=== PATIENT | male | born 1985 | race Caucasian/White ===

== ENCOUNTER 2019-05-19 08:21 | Outpatient (CLI) | payer OTHER ==
[2019-05-19 09:34] VITALS: BP 112/68
--- NOTE | 2019-05-19 09:34 | SLEEP CARE CONSULTATION ---
Information from patient questionnaire entered by Suha Metzger. I have reviewed and concur with the information entered by Suha Metzger. This document represents the service I personally performed and the decisions made by me, Martha Agarwal, RN, MSN, INSURANCE PROCESSING CLERK. History of Present Illness Reason for Visit: New patient Chief Complaint: reports: Unrefreshed sleep, Excessive daytime sleepiness, Fatigue, Frequent awakenings at night, Other (constant heachache/migraines) Duration of Symptoms: 12 years Usual bedtime: 9-9:30 pm Time it takes to fall asleep: 30-120 mins Snores at night: Yes Observed to quit breathing while asleep: No Sleeps alone due to snoring: No Reasons for waking at night: reports: Bathroom, Other (unknown) Toss, Turn, or Twitch while sleeping: Yes Recalls having dreams: Yes Usually gets out of bed at: 5:15 am Feels refreshed in the morning: No Morning headache: Yes (has headache most of time that is diminished by excedrin. ) Sleepy or fatigued during the day: Yes Ever fallen asleep while driving: Yes (nodding off long distance about a year ago / no rumble bumps / no accident) Takes day naps: No Dreams during day naps: No Prior sleep studies: No - Parasomnia Symptoms Ever been unable to move upon waking from sleep: Yes (last time a month ago. - about 6 times a year for past 15 years) Walks in sleep: No Talks in sleep: No Ever acted out dreams in sleep: Yes (once only during a hockey dream) Ever felt weak in the knees when startled or emotional: No Bothered by creepy, crawly, restless sensations in legs: No Problems with memory or concentration: Yes Subjective Initial [place] Sleepiness Scale score: 15 Past Medical History Past Medical History: reports: Mood disorder (anxiety / depression - sees a counselor monthly. 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 Patient is and lives in [place]. Have you smoked in the past 12 months: No Cigarettes per day (20/pack): 5 Years of smokin Quit date: January 2010 Smoking Pack Years: 0.8 Alcohol use: Yes Alcohol amount and frequency: 1-2 a couple times a month Caffeine use: Yes Caffeine amount and frequency: 1 cup of coffee a day Family History Family history of sleep disordered breathing: Yes Family Hx Sleep Apnea: Grandparent: Snoring Allergies and Home Medications Known drug allergies: Yes (Penicillin) Home medication list reviewed: Yes Allergy and home medication list: Tums 1-2 daily as needed Excedrin 1-2 daily as needed. Review of Systems Gastrointestinal: reports: heartburn Urinary: reports: frequency Neurological: reports: headaches Psychiatric: reports: mood disorder Ear/Nose/Throat: reports: wisdom teeth removed Endocrine: reports: sluggishness, too hot or cold (gets very warm during sleep and has nightsweats most nights), excessive thirst (always feels thirst) Musculoskeletal: reports: joint pain, neck pain, back pain (chronic back , neck and knees - recently evaluated about August) Physical Exam Blood Pressure: 112/68 Cuff size: long Heart Rate: 63 O2 Saturation: 98 Height: 5 ft 7.25 in Weight: 192 lb 3.2 oz Body Mass Index: 29.8 BMI Classification: Overweight HEENT: No craniofacial malformation Nostrils: patent to airflow Turbinates: swollen Septum: midline Mouth and throat: narrow oropharynx Soft palate: long Hard palate: normal Uvula: normal Uvula visualization: 50% Mallampati Class II Tongue: normal in size Tonsils: small Chin and jaw: Micrognathia Neck: normal w/o lymphadenopathy or thyromegaly Heart: regular rate and rhythm Lungs: clear bilaterally Abdomen: soft Extremities: no edema or clubbing Impression and Plan 1. Suspected Obstructive Sleep Apnea-Hypopnea Syndrome, as suggested by a history of loud and irregular snoring, , frequent awakenings, unrefreshed sleep, fatigue and excessive daytime sleepiness. His night time sweats could be from work of breathing during the night. Patient also has a small chin which could increase his risk of apnea. Narrow oropharynx and obesity are common predisposing factors for obstructive sleep apnea-hypopnea syndrome. Also depression and sleep apnea has similar symptoms of fatigue. I recommend proceeding to polysomnography to confirm the diagnosis and to assess severity. If the patient has significant sleep disordered breathing, a manual CPAP titration study will also be performed to find the optimal treatment pressure. I informed the patient of what the sleep studies involve and after some discussion, obtained agreement to proceed. The pathophysiology of obstructive sleep apnea-hypopnea syndrome was discussed with the patient and health risks of cardiovascular and cerebrovascular disease if not treated. [facility] brochure for ob structive sleep apnea-hypopnea syndrome given and reviewed. Risks of drowsy driving discussed in detail and patient advised to avoid long distance driving and to pulley worker at the first sign of drowsiness. Patient agreed to plan. [facility] drowsy driving brochure given and signs of drowsiness reviewed. 2. Insomnia, sleep onset difficulty due to unknown but also has muscleskeletal discomfort. He will also wake frequently for unknown reason and has difficulty falling back to sleep. He admits to checking the clock and increased anxiety and alertness noted. He does not leave the room but will stay in bed and strive to sleep with intermittent success. Thus until a sleep study is completed to determine if apnea is a cause of his waking and difficulty going to sleep, he is first advised to cover the clock. Next, in unable to go to sleep after a short while, he is to leave the room and engage in quiet activity such reading something relaxing to him until sleepy enough tor return to bed. In addition if unable to sleep due to things on the mind, he is to write out concerns or list to do as release and then return that relaxing activity until sleepy enough to return to bed. This can be repeated as often as necessary to assoicate the bed with sleep and not frustration to get to sleep. [facility] How to Sleep better given and reviewed. He was also advised to review his sleep environment and discussed importance of relaxing ritual before bedtime. Since it ususuall takes about 30 minutes, maybe he needs to go to bed 30 mintues later. 3. Repeated isolated sleep paralysis, per ICSD3 is the inability to perform voluntary movements at sleep onset or on waking from sleep that can last seconds to minutes, resolves spontaneously or can be aborted by touch or sound or patient making intense efforts to move. The patient is conscious with full recall. Anxiety can initially occur and hallucinatory experiences can accompany. Predisposing / precipitating factors can be sleep deprivation and irregular sleep schedules. Some studies show mental stress can be a factor. Generally sleep paralysis occurs more commonly in the supine position. Other regression analysis show association with bipolar disorder, use of anxiolytic medication and sleep related leg cramps. Usually onset is in adolescence and most events seem to occur in 2nd or 3rd decades but can also continue later in life. No complications are noted except anxiety about their occurrence. These episodes arise from REM sleep and are an example of the state dissociation of REM sleep persisting into wakefulness. When associated with daytime cataplexy, it can be a symptom of another sleep disorder narcolepsy. Patient symptoms have been for about 15 years, occuring several times a year and no symptoms of cataplexy. I will confer with my medical equipment repair technician to see if an MSLT is indicated if the polysomnography is negative to rule out this disorder. 4. GERD , symptoms of heart burn daily relieved with daily use of Tums. Patient advised of the importance of follow up with PCP for further evaluation and agreed with plan. 5. Symptoms of excessive thirst and urination reported by patient daily. I advised him to follow up with his PCP to rule out etiology such as elevated blood sugar or diabetes. He agreed with plan. * Schedule polysomnography +- manual CPAP titration study * Avoid long distance driving or driving when feeling sleepy. * Avoid alcohol, sedative and muscle relaxant around bedtime. * Attempt to lose weight. * Implement methods to reduce insomnia. * Confer with Dr. Cortez in regard to recurrent sleep paralysis. * Follow up with PCP for further evaluation of daily GERD symptoms, night sweats and excessive thirst and urination. * Review instructions provided by trained office staff on how to prepare for the sleep study. * Return for follow-up after sleep study completed. * * 50 minutes
== END 2019-05-19 08:22 | disposition home or self-care (01) ==
LOC: SC 08:21
PROVIDERS: ATTEND Nurse Practitioner Family
DX: R06.83 Snoring (principal); G47.8 Other sleep disorders; R53.83 Other fatigue; G47.10 Hypersomnia, unspecified; G47.00 Insomnia, unspecified; G47.53 Recurrent isolated sleep paralysis; K21.9 Gastro-esophageal reflux disease without esophagitis; R63.1 Polydipsia; R35.0 Frequency of micturition
CPT/HCPCS: 99204; 99212

== ENCOUNTER 2019-08-05 20:32 | Outpatient (CLI) | payer OTHER | END 2019-08-05 20:33 | disposition home or self-care (01) | LOC: SC 20:32 | PROVIDERS: ATTEND Internal Medicine Pulmonary Disease | DX: R06.83 Snoring (principal); G47.10 Hypersomnia, unspecified; G47.8 Other sleep disorders; G44.221 Chronic tension-type headache, intractable; R41.89 Other symptoms and signs involving cognitive functions and awareness | CPT/HCPCS: 95810 ==

== ENCOUNTER 2019-08-06 06:04 | Outpatient (CLI) | payer OTHER | END 2019-08-06 06:05 | disposition home or self-care (01) | LOC: SC 06:04 | PROVIDERS: ATTEND Internal Medicine Pulmonary Disease | DX: G47.10 Hypersomnia, unspecified (principal); R06.83 Snoring; G44.221 Chronic tension-type headache, intractable; G47.8 Other sleep disorders; R41.82 Altered mental status, unspecified | CPT/HCPCS: 80306; 95805 ==

== ENCOUNTER 2019-08-06 08:00 | Outpatient (CLI) | payer OTHER ==
[2019-08-06 12:06] LABS: MUDS CUTOFF CONCENTRATIONS CUTOFF CONC BELOW:
[2019-08-06 12:27] LABS: AMPHETAMINE SCREEN,URINE NEGATIVE (NEGATIVE); BENZODIAZEPINES SCREEN, URINE NEGATIVE (NEGATIVE); COCAINE SCREEN URINE NEGATIVE (NEGATIVE); METHADONE SCREEN, URINE NEGATIVE (NEGATIVE); METHAMPHETAMINES SCREEN, URINE NEGATIVE (NEGATIVE); OPIATE SCREEN, URINE NEGATIVE (NEGATIVE); OXYCODONE SCREEN, URINE NEGATIVE (NEGATIVE); PROPOXYPHENE SCREEN, URINE NEGATIVE (NEGATIVE); TRICYCLIC ANTIDEPRESSANT,URINE NEGATIVE (NEGATIVE)
== END 2019-08-06 23:59 | disposition home or self-care (01) ==
LOC: LAB.R 08:00
PROVIDERS: ATTEND Internal Medicine Pulmonary Disease
DX: R41.82 Altered mental status, unspecified (principal)
CPT/HCPCS: 80306

== ENCOUNTER 2022-11-21 06:52 | Outpatient (CLI) | payer OTHER ==
--- NOTE | 2022-11-21 14:20 | MRI Report ---
PROCEDURE: FINGER(S) WO - RT INDICATIONS: PAIN IN RIGHT FINGERS TECHNIQUE: Noncontrast oblique coronal T1 spin echo and T2 fast spin echo with fat saturation, axial and sagitta l T2 fast spin echo with fat saturation, through the thumb. COMPARISON: None. FINDINGS: Image quality: Excellent. Bones: Subacute to chronic appearing avulsion injury involving ulnar aspect of first proximal phalang eal base is seen with minimally displaced fractured fragment. No significant marrow edema. No other f racture or dislocation. No intra-osseous lesions. First carpometacarpal joint: On sagittal images, the dorsal radial ligament and posterior oblique li gament appear intact. The intermetacarpal ligament between the 1st and 2nd metacarpal bases also rik ears intact. On the volar aspect, the deep and superficial layers of the anterior oblique ligament a ppear intact. First metacarpophalangeal joint: The proper and accessory components of the radial collateral ligame nt appears intact, along with overlying fibers of the abductor pollicis brevis tendon. The proper an d accessory components of the ulnar collateral ligaments both appear attenuated near their insertion on first proximal phalangeal base. The overlying fibers of the adductor pollicis muscle are intact. The aponeurosis of the adductor pollicis muscle also appears normal. The volar plate appears intact on sagittal images, situated between the radial and ulnar sesamoids. Thenar muscles: The superficial abductor pollicis longus muscle appears normal, with tendon insertin g on the radial base of the first proximal phalanx. The opponens pollicis muscle also appears normal , inserting on the first metacarpal shaft. The flexor pollicis brevis muscle appears normal, with te ndon inserting on the radial sesamoid and first proximal phalanx. The oblique and transverse heads o f the adductor pollicis muscle appear normal, inserting on the ulnar sesamoid and proximal phalanx as part of the adductor aponeurosis. Flexor pollicis longus tendon: Tendon fibers appear intact, coursing between the thenar eminence mus cles and the adductor pollicis muscle, and inserting on the volar base of the distal phalanx. The fi rst annular neena at the level of the first MCP joint appears intact, intimate with the sesamoids. The second annular neena at the level of interphalangeal joint also appears intact. The oblique aman ular neena between the 1st and 2nd annular pulleys appears intact, with ulnar proximal attachment in timate with the adductor aponeurosis. The variable annular neena also appears intact between the fi rst annular and oblique annular pulleys. Extensor tendons: The extensor pollicis brevis tendon appears intact, coursing radial to the extenso r pollicis longus tendon and inserting on the dorsal base of the proximal phalanx, blending with the dorsal plate of the first MCP joint. The extensor pollicis longus tendon appears intact as it insert s on the dorsal base of the distal phalanx. The sagittal band at the level of the first MCP joint ap pears intact. The abductor pollicis longus tendon slips appear intact at the radial aspect of the pr oximal phalanx, proximal to the abductor pollicis brevis tendon insertion. Miscellaneous: No ganglion cysts. IMPRESSION: 1. Avulsion injury involving ulnar aspect of first proximal phalangeal base with slightly displaced f ractured fragment. No significant marrow edema. No other fracture or dislocation. 2. Low to moderate grade partial-thickness tear involving distal ulnar collateral ligament of first M CP joint without Stener lesion. 3. Rest of the tendons and ligaments of first digit are intact. Reviewed by: Celestine Morocho MD on 11/21/2022 2:18 PM PDT Approved by: Celestine Morocho MD on 11/21/2022 2:18 PM PDT Station ID: [id number]
== END 2022-11-21 06:53 | disposition home or self-care (01) ==
LOC: DI 06:52
PROVIDERS: ATTEND Orthopaedic Surgery
DX: S62.511A Displaced fracture of proximal phalanx of right thumb, initial encounter for closed fracture (principal); S63.641A Sprain of metacarpophalangeal joint of right thumb, initial encounter